=== PATIENT | male | born 1945 | race Caucasian/White ===

== ENCOUNTER → 2018-05-05 | Outpatient (CLI) | payer OTHER ==
[~2018-05-05] MED LIST: CONTRAST GIVEN. MC PRN; IOHEXOL 300 MG/ML 100ML VIAL. IV ONE
--- NOTE | 2018-05-05 12:35 | RAD ---
Examination: CT chest with IV contrast HISTORY: History of lymphoma COMPARISON: None available TECHNIQUE: Axial CT images of the chest were performed with IV contrast. Coronal and sagittal reformats are performed Exposure: One or more of the following individualized dose reduction techniques were utilized for this examination: 1. Automated exposure control 2. Adjustment of the mA and/or kV according to patient size 3. Use of iterative reconstruction technique FINDINGS: The central airways are patent. The visualized thyroid gland grossly appears unremarkable. Coronary artery calcifications. Small mediastinal lymph nodes identified with the largest measuring 1.6 cm in the pretracheal region. Right hilar lymph node identified measuring 2 cm. There is a round 5.8 x 4.8 cm mass or focal consolidation identified in the right lower lobe of the lung abutting the pleura. Linear atelectasis left lung base. The visualized liver, spleen, adrenals grossly appears unremarkable. Mild degenerative changes thoracic spine. IMPRESSION: 1. A large 5.8 cm masslike density identified in the right lower lobe of the lung. Suspicious for neoplasm although focal pneumonia is not completely excluded. Correlate clinically. Close interval follow-up examination and follow-up PET CT scan can be considered. 2. A 2 cm right hilar lymph node and a 1.6 cm pretracheal lymph node identified could be reactive lymphadenopathy or metastasis. Electronically signed by: Norman Vasquez MD (05/05/2018 12:30 PM) [id number]
== END | disposition home or self-care (01) ==
LOC: CT 10:57
PROVIDERS: ATTEND Internal Medicine Hematology & Oncology
DX: J18.8 Other pneumonia, unspecified organism (principal); J98.11 Atelectasis; I25.10 Atherosclerotic heart disease of native coronary artery without angina pectoris; R59.0 Localized enlarged lymph nodes; Z85.79 Personal history of other malignant neoplasms of lymphoid, hematopoietic and related tissues
CPT/HCPCS: 71260; Q9967

== ENCOUNTER → 2019-05-24 | Outpatient (CLI) | payer MEDICARE ==
[~2019-05-24] MED LIST changes: -CONTRAST GIVEN. MC PRN; +IOHEXOL 240 MG/ML 50ML VIAL. PO ONE
--- NOTE | 2019-05-24 15:19 | RAD ---
EXAM: CT OF THE CHEST, ABDOMEN AND PELVIS WITH CONTRAST. HISTORY: Lymphoma. TECHNIQUE: Computed tomography of the chest, abdomen and pelvis was performed after the intravenous administration of iodinated contrast. One or more of the following individualized dose reduction techniques were utilized for this examination: 1. Automated exposure control. 2. Adjustment of the mA and/or kV according to patient size. 3. Use of iterative reconstruction technique. COMPARISON: 05/05/2018. FINDINGS: Bone windows reveal no suspicious lesions. A lower paratracheal lymph node measures 2.3 x 1.4 cm and has a fatty hilus. This is stable. Calcified right hilar lymph nodes are likely secondary to old granulomatous disease. An uncalcified right infrahilar lymph node measures 2.1 x 1.3 cm and is unchanged. There is no pleural or pericardial effusion. The heart is not enlarged. A mass in the right lower lobe measures 7.4 x 6.3 cm. Previously it measured 6.5 x 4.7 cm. It bulges the major fissure anteriorly. A calcified granuloma is noted in the right lower lobe. There is mild atelectasis elsewhere. The prostate is moderately enlarged and impresses on the bladder base. It measures 5.3 cm. There is mild bladder wall thickening. The appendix is not inflamed. Sigmoid diverticulosis is mild. There is no small bowel obstruction. The liver, gallbladder, pancreas, adrenal glands, spleen and kidneys are unremarkable. There are no pathologically enlarged lymph nodes. IMPRESSION: 1. A 7.4 cm right lower lobe mass has increased in size from 6.5 cm on the prior study. This is concerning for neoplasm. Correlate for a known diagnosis. 2. Prominent right infrahilar and lower paratracheal lymph nodes are not clearly changed. Electronically signed by: Kwaku White MD (05/24/2019 3:16 PM) [facility]
== END | disposition home or self-care (01) ==
LOC: CT 11:00
PROVIDERS: ATTEND Internal Medicine Hematology & Oncology
DX: K57.30 Diverticulosis of large intestine without perforation or abscess without bleeding (principal); I89.8 Other specified noninfective disorders of lymphatic vessels and lymph nodes; R91.8 Other nonspecific abnormal finding of lung field; J98.11 Atelectasis; N40.0 Benign prostatic hyperplasia without lower urinary tract symptoms; C85.80 Other specified types of non-Hodgkin lymphoma, unspecified site
CPT/HCPCS: 71260; 74177; Q9966; Q9967